=== PATIENT | female | born 1935 | race Hispanic/Latino ===

== ENCOUNTER 2018-09-03 17:25 | Inpatient (IN) | payer MEDICARE ==
[2018-09-03 17:25] VITALS: BMI 37.8
[2018-09-03 18:38] LABS: BASO # 0.02 K/mm3 (0.0-2.0); BASO % 0.4 % (0.0-3.0); EOS # 0.1 (0.0-0.7); GRAN # 3.44 (1.4-6.5); GRAN % 62.5 % (50.0-68.0); HEMOGLOBIN 13.1 g/dL (12.0-16.0); LYMPH # 1.3 (1.2-3.4); LYMPH % 24.2 % (22.0-35.0); MEAN CELL VOLUME 95.4 fl (80.0-105.0); MEAN CORPUSCULAR HEMOGLOBIN 31.6 pg (25.0-35.0); MEAN CORPUSCULAR HGB CONC 33.2 g/dl (31.0-37.0); MEAN PLATELET VOLUME 9.5 fl (7.0-11.0); MONO # 0.6 (0.1-0.6); MONO % 10.9 % (1.0-6.0); RBC 4.14 10^6/uL (3.5-6.1); RED CELL DISTRIBUTION WIDTH 12.1 % (11.5-14.5); WHITE BLOOD COUNT 5.5 10^3/uL (4.5-11.0)
--- NOTE | 2018-09-03 18:39 | ED PDOC ---
Arrival/HPI - General Chief Complaint: Shortness Of Breath Time Seen by Provider: 09/03/18 17:34 Historian: Patient - History of Present Illness Narrative History of Present Illness (Text): 09/03/18 18:34 82-year-old female presents today with worsening cough since August 10. Patient was seen by her primary care physician as well as the women's health care nurse practitioner has been given Zithromax as well as inhaled steroid-induced without improvement in his symptoms. Patient's daughter states over the past 2 days symptoms seem to be worsening. Patient denies fevers or chills. She denies chest pain. She is complaining of dyspnea on exertion. She denies abdominal pain. No nausea or vomiting. No dizziness or weakness. No other complaints. Past Medical History - Provider Review Nursing Documentation Reviewed: Yes - Travel History Have you recently traveled outside [place] w/in the past 3 mons?: No - Infectious Disease Hx of Infectious Diseases: None - Cardiac Hx Hypertension: Yes - Pulmonary Hx Asthma: Yes Other/Comment: Pneumonectomy (L Lung) - Neurological Hx Dementia: Yes - Hematological/Oncological Hx Cancer: Yes (L breast ca) - Psychiatric Hx Substance Use: No - Surgical History Other/Comment: Pneumonectomy (L Lung) - Anesthesia Hx Anesthesia: Yes Hx Anesthesia Reactions: No Hx Malignant Hyperthermia: No Family/Social History - Physician Review Nursing Documentation Reviewed: Yes Family/Social History: Unknown Family HX Smoking Status: Never Smoked Hx Alcohol Use: No Hx Substance Use: No Allergies/Home Meds Allergies/Adverse Reactions: Allergies levofloxacin [From Levaquin] Allergy (Verified 09/03/18 19:37) DIZZINESS Sulfa (Sulfonamide Antibiotics) Allergy (Verified 09/03/18 19:26) RASH Home Medications: Home Meds Medication Instructions Recorded Confirmed Simvastatin [Zocor] 1 tab PO DAILY 05/07/18 09/03/18 Arformoterol [Brovana] 1 inh NEB BID 09/03/18 09/03/18 Ascorbic Acid [Vitamin C] 1,000 mg PO DAILY 09/03/18 09/03/18 Aspirin [Aspirin Chewable] 81 mg PO DAILY 09/03/18 09/03/18 Benzonatate [Tessalon Perle] 100 mg PO TID 09/03/18 09/03/18 Bimatoprost [Lumigan] 1 drop OU HS 09/03/18 09/03/18 Budesonide [Pulmicort Respules] 1 inh NEB Q12H 09/03/18 09/03/18 Cefuroxime Axetil [Cefuroxime] 500 mg PO DAILY 09/03/18 09/03/18 Cholecalciferol (Vitamin D3) 2,000 iu PO DAILY 09/03/18 09/03/18 [Vitamin D3] Escitalopram Oxalate [Lexapro] 5 mg PO DAILY 09/03/18 09/03/18 Ginseng 560 mg PO DAILY 09/03/18 09/03/18 Guaifenesin [Mucinex] 1,200 mg PO PRN PRN 09/03/18 09/03/18 Metoprolol Succinate [Kapspargo 50 mg PO DAILY 09/03/18 09/03/18 Sprinkle] Parsley/Garlic [Garlic & Parsley 1 tab PO DAILY 09/03/18 09/03/18 Tablet] Pseudoephedrine HCl [Sudafed] 30 mg PO DAILY PRN 09/03/18 09/03/18 Turmeric 400 mg PO DAILY 09/03/18 09/03/18 Vitamin E Acetate [Vitamin E] 1 tab PO DAILY 09/03/18 09/03/18 Zinc Gluconate-Zinc Picolinate 30 mg PO DAILY 09/03/18 09/03/18 [Zinc] l-Mefol/A-Cyst/Meb12/Algal Oil 1 tab PO DAILY 09/03/18 09/03/18 [Cerefolin Nac Caplet] Review of Systems - Review of Systems Constitutional: absent: Fatigue, Fevers ENT: Sinus Congestion. absent: Sore Throat Respiratory: SOB, Cough Cardiovascular: absent: Chest Pain, Palpitations Gastrointestinal: absent: Abdominal Pain, Nausea, Vomiting Genitourinary Female: absent: Dysuria Musculoskeletal: absent: Arthralgias Skin: absent: Rash, Pruritis Neurological: absent: Headache, Dizziness Psychiatric: absent: Anxiety, Depression Physical Exam Vital Signs Reviewed: Yes Vital Signs Temp Pulse Resp BP Pulse Ox 09/03/18 17:41 98.2 F 79 18 104/60 96 Temperature: Afebrile Blood Pressure: Normal Pulse: Regular Respiratory Rate: Normal Appearance: Positive for: Well-Appearing, Non-Toxic, Comfortable Pain Distress: None Mental Status: Positive for: Alert and Oriented X 3 - Systems Exam Head: Present: Atraumatic Mouth: Present: Moist Mucous Membranes Neck: Present: Normal Range of Motion Respiratory/Chest: Present: Good Air Exchange, Wheezes, Rhonchi. No: Clear to Auscultation, Respiratory Distress, Accessory Muscle Use Cardiovascular: Present: Regular Rate and Rhythm, Normal S1, S2. No: Murmurs Abdomen: No: Tenderness, Distention, Rebound, Guarding Upper Extremity: Present: Normal Inspection Lower Extremity: Present: Edema (2+ pitting edema bilaterally .) Neurological: Present: GCS=15, Speech Normal Skin: Present: Warm, Dry, Normal Color. No: Rashes Psychiatric: Present: Alert, Oriented x 3 Medical Decision Making ED Course and Treatment: 09/03/18 18:40 82yr old female with cough and SOB worsening since 08/10/18 despite multiple medications and antibiotics. cbc wnl cmp wnl trop wnl bnp: 498 ekg; accelerated jucntional rhythm with pvcs. no st elevations. at 79b/m cxr; no right sided infiltrate, s/p left lung resection ua: + leukocytes patient with hypoxia, worsening cough since 08/10/18 despite antibiotics and breathing treatments. Found to be significantly short of breath on exertion in the emergency room. With history of right lung resection 40 years ago. Case discussed with Dr. Joya accepts admission to telemetry with cardiology and pulmonology consult Will start patient on Zosyn for possible pneumonia all aspects of this case were discussed the attending of record. Impression: Shortness of breath, hypoxia, dyspnea on exertion, elevated BNP, failure of outpatient treatment Admit to remote telemetry Reassessment Condition: Re-examined, Improved - RAD Interpretation Radiology Orders: 09/03/18 18:01 CHEST PORTABLE [RAD] Stat Disposition/Present on Arrival - Present on Arrival Any Indicators Present on Arrival: No History of DVT/PE: No History of Uncontrolled Diabetes: No Urinary Catheter: No History of Decub. Ulcer: No History Surgical Site Infection Following: None - Disposition Have Diagnosis and Disposition been Completed?: Yes Diagnosis: Shortness of breath, Hypoxia, Failure of outpatient treatment Disposition: HOSPITALIZED Disposition Time: 19:45 Patient Plan: Admission Patient Problems: Current Active Problems Problem Status Onset Failure of outpatient treatment Acute Hypoxia Acute Shortness of breath Acute Condition: FAIR
[2018-09-03] MEDS ORDERED: Albuterol-Ipratrop 3 mg / 0.5 (3 ml) UD IH STA ×2 (18:40→20:41)
[2018-09-03 18:51] LABS: ALB/GLOB RATIO 1.5 (1.1-1.8); ALBUMIN 4.2 g/dL (3.0-4.8); ALT/SGPT 18 U/L (7-56); AST/SGOT 24 U/L (14-36); BLOOD UREA NITROGEN 9 mg/dL (7-21); CALCIUM 9.3 mg/dL (8.4-10.5); GFR NON-AFRICAN AMERICAN > 60
[2018-09-03 18:59] LABS: B-TYPE NATRIURETIC PEPTIDE 498 pg/mL (0-450); TROPONIN I < 0.01 ng/mL
[2018-09-03 19:16] LABS: PH,URINE 6.5 (4.7-8.0); URINE APPEARANCE CLEAR (CLEAR); URINE BILIRUBIN NEGATIVE (NEGATIVE); URINE BLOOD NEGATIVE (NEGATIVE); URINE COLOR LIGHT YELLOW (YELLOW); URINE GLUCOSE (UA) NEGATIVE (NEGATIVE); URINE LEUKOCYTE ESTERASE LARGE Leu/uL (NEGATIVE); URINE PROTEIN NEGATIVE mg/dL (<30 mg/dL); URINE UROBILINOGEN 0.2 E.U./dL (<1 E.U./dL)
[2018-09-03 19:21] LABS: URINE RBC NEGATIVE /hpf (0-2)
[2018-09-03] MEDS ORDERED: Piperacillin/Tazobact 3.375 gm 100 ML IVPB STA (19:37)
[2018-09-03] MEDS ORDERED: Albuterol-Ipratrop 3 mg / 0.5 (3 ml) UD IH PRN (21:26)
[2018-09-03] MEDS: MethylPREDNISolone 40 mg Vial IV SCH (23:46)
--- NOTE | 2018-09-04 01:12 | HP ---
DATE OF EXAM: 09/03/2018 HISTORY OF PRESENT ILLNESS: The patient is an 82-year-old, brought in by family because of increasing cough and congestion. According to family, that is going on for the last couple of weeks. She was taken to who prescribed her Z-vcítor, but did not improve. So, she visited Dr. Mullen, who gave some inhaler, which made her feel a little better, but she has been coughing and has chest congestion since then. The patient's symptoms got worse for the last 2 days. Family then decided to bring her to emergency room. She did have low-grade fever a couple of weeks ago, but lately denies any fever or chills, however, having shortness of breath. No history of hemoptysis. No hematemesis. No nausea or vomiting. PAST MEDICAL HISTORY: Significant for: 1. Throat cancer. 2. She has a pneumonectomy done. 3. Hypertension. 4. Also, history of breast cancer. ALLERGIES: SHE IS ALLERGIC TO LEVAQUIN AND SULFA MEDICATIONS. MEDICATIONS AT HOME: She is on multiple supplements including vitamin E, vitamin D, , turmeric, ginseng, garlic, zinc, gluconate, aspirin, Sudafed, Mucinex. She takes Lumigan eye drops. She is on Lexapro 5 mg daily, Brovana, Pulmicort, and recently was given Zithromax, and she is also on metoprolol and Zocor. SOCIAL HISTORY: No history of smoking or drinking. PHYSICAL EXAMINATION: GENERAL: She has mild shortness of breath. VITAL SIGNS: She is afebrile, pulse 79, respirations 18, blood pressure 104/60. LUNGS: She has expiratory rhonchi, decreased breath sounds in the left chest. HEART: S1 and S2 audible. ABDOMEN: Soft, nontender. No rebound. No guarding. NEUROLOGICAL: The patient is awake and alert. EXTREMITIES: Bilateral legs, no edema. LABORATORY EXAM: WBC is 5.5, hemoglobin 13, hematocrit 39, platelets 143. Chemistry: Sodium 136, potassium 4.5, chloride 99, CO2 of 32, BUN 9, creatinine 0.6, blood sugar 95. LFTs are within normal limits. BNP 498. Urinalysis shows large leukocytes. Flu test is negative. ASSESSMENT: 1. Exertional dyspnea. 2. Status post pneumonectomy. 3. Asthmatic bronchitis. 4. History of hypertension. 5. Hyperlipidemia. PLAN: We will start the patient on nebulizer treatment. We will start her on IV steroid, IV antibiotic. I will order for CT scan of the lungs. Pulmonary consult by Dr. Escalera and Cardiology consult by Dr. Ma are requested. Vishal Joya MD
[2018-09-04] MEDS: Albuterol-Ipratrop 3 mg / 0.5 (3 ml) UD IH SCH ×4 (02:35→21:15)
[2018-09-04] MEDS: MethylPREDNISolone 40 mg Vial IV SCH (06:19)
[2018-09-04] MEDS: Pantoprazole 40 mg EC Tab PO SCH (06:20)
[2018-09-04] MEDS: Budesonide 0.5 mg/2 ml Inhal Susp UD IH SCH ×2 (08:03→21:15)
[2018-09-04] MEDS: Azithromycin 500MG/NS 250ml 500 MG/250 ML BAG IVPB SCH (09:29)
[2018-09-04] MEDS: MethylPREDNISolone 40 mg Vial IVP SCH ×2 (09:30→21:37)
[2018-09-04] MEDS: cefTRIAXone 1 gm 1 GM/100 ML BAG IVPB SCH (09:30)
[2018-09-04] MEDS: Enoxaparin 30 mg Syringe SC SCH (09:30)
--- NOTE | 2018-09-04 09:40 | CARD ---
APPROVED REPORT Date of service: 09/03/2018 EKG Measurement Heart [id number] <Conclusion> Normal sinus rhythm with frequent premature ventricular complexes and APCs Abnormal ECG
--- NOTE | 2018-09-04 10:08 | RAD ---
Date of service: 09/03/2018 HISTORY: cough/sob COMPARISON: 05/07/2018 FINDINGS: LUNGS: The right lung is clear. PLEURA: There is complete opacification of the left hemithorax. Calcified pleural plaques are seen. CARDIOVASCULAR: Aortic calcification Cardiomegaly no pulmonary vascular congestion. OSSEOUS STRUCTURES: No significant abnormalities. VISUALIZED UPPER ABDOMEN: Normal. OTHER FINDINGS: None. IMPRESSION: There is complete opacification of the left hemithorax. Calcified pleural plaques are seen.
--- NOTE | 2018-09-04 11:28 | CON ---
DATE: 09/04/2018 REQUESTING PHYSICIAN: Dr. Joya. REASON FOR CONSULTATION: Cough, dyspnea. HISTORY: This is an 82-year-old woman with advanced dementia and prior left lobectomy, who was brought to emergency room by her daughter for worsening cough for now and dyspnea. According to her daughter, she had no complaints of chest discomfort. She has been treated with outpatient bronchodilator therapy and antibiotics with suboptimal result. She is seen in the presence of her daughter. She apparently was quite restless last evening and received some anxiolytic therapy and is fairly somnolent. The rest of the history is obtained via the daughter. She apparently underwent left lobectomy 35 years ago, the exact reason was unclear. She does have a history of hypertension, prior breast cancer. She also has a history of hyperlipidemia. MEDICATIONS: Medication at home include Zocor, Brovana, aspirin, Pulmicort, cefuroxime, Lexapro and Mucinex. ALLERGIES: SHE HAS HAD REACTIONS TO SULFAS AND LEVAQUIN IN THE PAST. SOCIAL HISTORY: She never smoked. She lives with her daughter. FAMILY HISTORY: Both parents were from unknown cause. REVIEW OF SYSTEMS: Ten-point review of systems is notable mainly for the problems mentioned above. PHYSICAL EXAMINATION: GENERAL: She is a very elderly woman, who appears somnolent. At the present time, she appears to be in no distress. VITAL SIGNS: Her blood pressure is 140/76 with pulse 56 and sinus, respirations are 16. She is afebrile. HEENT: No JVD. CHEST: Diminished breath sounds on the left side, few rhonchi heard on the right. HEART: No pathological murmurs or gallops are heard. ABDOMEN: Soft. Bowel sounds are present. EXTREMITIES: No edema. SKIN: Warm and dry. PSYCHIATRIC: Sedated, unable to assess. NEUROLOGIC: Also unable to assess. DIAGNOSTIC DATA: Troponin is negative. Potassium 4.5. BUN and creatinine are 9 and 0.6. White count 5.5, hemoglobin and hematocrit are 13.1 and 39.3 with a platelet count of 143,000. Troponin is negative. BNP is 498. Electrocardiogram was not found on the chart. According to emergency room record, it showed evidence of an accelerated junctional rhythm with PVCs, no acute ST-T abnormalities. Chest x-ray reveals right lung opacification with no significant disease on the right side. IMPRESSION: 1. Dyspnea and cough, likely due to bronchitis, doubt cardiac cause. 2. Accelerated junctional rhythm, asymptomatic. No need for treatment at this time. 3. Advanced dementia. 4. Status post pneumonectomy. 5. Rest of problems as noted. RECOMMENDATIONS: From a cardiac standpoint, I would not pursue any further evaluation. Her elevated BNP is likely chronic and secondary to her pulmonary condition. Diuretic therapy is not needed at this time. From a cardiac standpoint, no further workup is planned, and she is stable for discharge once medically cleared. We will be happy to see her in the future if needed. Thank you for this consultation. Carmelo Ma MD MTDAnupam
[2018-09-04] MEDS: Metoprolol Succinate 50 mg XL Tab PO SCH (11:56)
--- NOTE | 2018-09-04 14:29 | CON ---
PULMONARY CONSULTATION DATE OF CONSULTATION: 09/04/2018 REFERRING PHYSICIAN: Vishal Joya MD REASON FOR CONSULTATION: Chronic obstructive pulmonary disease. History is obtained via extensive discussion with the daughter. I have also reviewed the chart at length. The patient is not an adequate historian at this point in time. HISTORY OF PRESENT ILLNESS: The patient is an 82-year-old female, with past medical history significant for chronic obstructive pulmonary disease, status post left pneumonectomy 30 years ago (reason unknown), hypertension, dementia, who presents to [facility] with a 2-week history of increasing shortness of breath at rest, dyspnea on exertion, and cough. There is no history of significant sputum production. There is no history of chest pain, coughing up of blood, or chest pain - brought on with deep respirations. There is no history of temperatures, chills, or infectious exposure. There is no history of night sweats, weight loss, or appetite change prior to the above events. No history of leg or calf pains. No history of syncope or diaphoresis. No history of recent travel or trauma. FAMILY HISTORY: No inheritable diseases. SOCIAL HISTORY: Positive for former tobacco usage. No alcohol. HOME MEDICATIONS: Vitamins, aspirin, Sudafed, Mucinex, Lexapro, Brovana, Pulmicort, Tessalon, cefuroxime, and Zocor. ALLERGIES: LEVAQUIN AND SULFONAMIDES. REVIEW OF SYSTEMS: No history of nausea, vomiting, or diarrhea. No acute urinary symptoms. No new neurologic complaints. Rest of the review of systems negative. PHYSICAL EXAMINATION: GENERAL: The patient appears comfortable at rest. She is not short of breath. She is not using accessory muscles for breathing. VITALS: Temperature is 98.2, pulse 56, respirations 18, blood pressure 139/77. Oxygen saturation on nasal cannula is 97%. HEENT: Normocephalic and atraumatic. NECK: No JVD. CARDIOVASCULAR: Systolic ejection murmur at the lower left sternal border. No S3 gallop. LUNGS: Mild rhonchi - right lung. No wheezing. Left lung - bronchial breath sounds. EXTREMITIES: No clubbing, cyanosis, or edema. Calves are nontender to palpation. GI: Abdomen is soft, nontender, and nondistended. Bowel sounds are positive. SKIN: No acute rash. NEUROLOGIC: Exam limited at the present time. PERTINENT LABORATORY DATA: Chest x-ray was done last night and reviewed. Official results are pending. The x-ray done last night is very similar to the x-ray done on 05/07/2018. CBC: White count 5.5K, hemoglobin 13.1, hematocrit 39.5, platelets of 143,000. Complete Metabolic Profile: B-type natriuretic peptide 498. Rest of the metabolic profile is within normal limits. IMPRESSION: 1. Acute bronchitis. 2. Chronic obstructive pulmonary disease. 3. Status post left pneumonectomy - 30 years ago. 4. Hypertension. PLAN: Again, I did discuss the case with the daughter at length. I have also reviewed the chart at length. The patient presents to [facility] with a 2-week history of worsening pulmonary symptoms. Again, the patient is status post left pneumonectomy many years ago. The daughter does not know the reason. I did review the chest x-ray as above. The chest x-ray shows no significant change from the previous film. CAT scan of the chest has been ordered for further evaluation. On physical exam, there is mild bronchospasm noted. However, there is no significant alveolar-arterial gradient. I will continue with the current nebulizer treatments and decrease the intravenous steroids this morning. I will also add inhaled Pulmicort. The patient has been placed on antibiotic therapy. Again, a CAT scan of the chest is pending. There are no temperatures by history. There is no leukocytosis. Clinical status of the patient certainly appears improved - compared to the past few days. The daughter agrees that the patient is showing clinical improvement. The daughter is asking to take her mother home today. I told her that I did not think that was feasible at this point in time. I will discuss the above with the attending physician. Thank you very much for this pulmonary consultation. Ruben Escalera MD [facility]
--- NOTE | 2018-09-04 15:24 | CT ---
Date of service: 09/04/2018 PROCEDURE: CT Chest without contrast HISTORY: sob COMPARISON: Portable chest 05/07/2018 TECHNIQUE: Contiguous axial images were obtained through the chest without intravenous contrast enhancement. Sagittal and coronal reconstructions were performed. Radiation dose: Total exam DLP = 702.0 mGy-cm. This CT exam was performed using one or more of the following dose reduction techniques: Automated exposure control, adjustment of the mA and/or kV according to patient size, and/or use of iterative reconstruction technique. FINDINGS: LUNGS: Status post pneumonectomy in the left lung with pleural calcification and pleural fluid. Volume loss. There is a small subsegmental infiltrate in the right lower lobe MEDIASTINUM: Unremarkable thoracic aorta. No aneurysm. Normal sized heart. Main pulmonary artery unremarkable. No vascular congestion. No lymphadenopathy. Aortic calcification PLEURA: No pleural fluid. No pneumothorax. BONES: No fracture. No destructive lesion. UPPER ABDOMEN: Grossly unremarkable. OTHER FINDINGS: None. IMPRESSION: Status post pneumonectomy in the left lung with pleural calcification and pleural fluid. Volume loss. There is a small subsegmental infiltrate in the right lower lobe
[2018-09-04 17:59] VITALS: O2SAT 98
[2018-09-05] MEDS: Albuterol-Ipratrop 3 mg / 0.5 (3 ml) UD IH SCH ×2 (03:12→07:35)
[2018-09-05] MEDS: Pantoprazole 40 mg EC Tab PO SCH (05:41)
[2018-09-05] MEDS: Budesonide 0.5 mg/2 ml Inhal Susp UD IH SCH (07:35)
[2018-09-05 08:30] VITALS: BP 136/55; PULSE 60; RESP 18; TEMP 97.7
[2018-09-05] MEDS: Enoxaparin 30 mg Syringe SC SCH (09:22)
[2018-09-05] MEDS: cefTRIAXone 1 gm 1 GM/100 ML BAG IVPB SCH (09:22)
[2018-09-05] MEDS: Metoprolol Succinate 50 mg XL Tab PO SCH (09:23)
[2018-09-05] MEDS: Azithromycin 500MG/NS 250ml 500 MG/250 ML BAG IVPB SCH (09:24)
--- NOTE | 2018-09-05 09:24 | PN ---
DATE: 09/04/2018 HISTORY OF PRESENT ILLNESS: The patient is 82 years old, seen and examined, resting comfortably. No shortness of breath. Daughter mom home, she thinks she is feeling better. The patient had failed outpatient treatment for bronchitis. She was recently given Brovana by Dr. Mullen. The patient's daughter thinks she was increasingly short of breath because of that. She seems to be doing better now. PHYSICAL EXAMINATION: GENERAL: She is comfortable, resting. VITAL SIGNS: She is afebrile, pulse 70, respirations 18 and blood pressure 126/67. LUNGS: Decreased breath sounds on the left side; however, she has fair airflow on the right upper and low lung region. HEART: S1 and S2, audible. ABDOMEN: Soft and nontender. No rebound. No guarding. NEUROLOGIC: The patient is awake, alert, oriented and communicative. LABORATORY EXAM: There is no new lab available today. Flu test is negative. CT scan of the chest is pending. ASSESSMENT: 1. Exertional dyspnea. 2. History of left pneumonectomy 40 years ago. 3. Right breast malignancy. 4. Mild dementia. 5. Deconditioning and difficulty walking. 6. History of hypertension. PLAN: Currently, the patient is on DVT prophylaxis. We will give her nebulizer treatment. She is on IV antibiotics, awaiting CT scan of the chest report, and if there is no pneumonia noted, the patient will be discharged later on today. Since the patient's family want to take her home, they do not want her to get any infection. Vishal Joya MD [facility]
--- NOTE | 2018-09-05 09:57 | PN ---
DATE: 09/05/2018 PULMONARY NOTE SUBJECTIVE: The patient appears very comfortable this morning. She is not short of breath at rest. She is awake and alert. PHYSICAL EXAMINATION: VITAL SIGNS: (Last noted in the computer): Temperature is 98.0, pulse 87, respirations 18/20, blood pressure 134/70 and oxygen saturation on nasal cannula is 98%. HEENT: Normocephalic and atraumatic. No JVD. CARDIOVASCULAR: Systolic ejection murmur at the lower left sternal border. No S3 gallop. LUNGS: Much less rhonchi - right lung. No wheezing. Left lung - bronchial breath sounds. EXTREMITIES: No clubbing, cyanosis or edema. Calves are nontender to palpation. GI: Abdomen is soft, nontender and nondistended. Bowel sounds are positive. SKIN: No acute rash. NEUROLOGIC: Limited at the present time. PERTINENT LABORATORY DATA: CAT scan of the chest was done and reviewed. There is a minimal infiltrate versus atelectasis noted at the right lung base. There is no lymphadenopathy. IMPRESSION: 1. Acute bronchitis. 2. Chronic obstructive pulmonary disease. 3. Status post left pneumonectomy - 30 years ago. 4. Rule out pneumonia - right base. PLAN: The patient appears much more comfortable this morning. She is out of bed, sitting in the chair. She is awake and alert. She does state to feeling much better overall. I did discuss the case with the daughter (at bedside) at length. The daughter confirms the patient's clinical improvement. I did review the CAT scan of the chest - noted above. There is a minimal infiltrate versus atelectasis noted at the right lung base. I will order a stat procalcitonin level to be done - to help us distinguish whether we are dealing with an acute pneumonia or not. Keep in mind, there is no history of fevers. There is no leukocytosis. The patient remains on antibiotic therapy. Cultures are negative. On physical exam, the patient's bronchospasm is significantly less. In addition, the alveolar-arterial gradient is also less. I will continue the current nebulizer treatments and decrease the intravenous steroids this morning. Clinical status of the patient is significantly improved - compared to the initial presentation. I will discuss the above with the attending physician. Ruben Escalera MD [facility] # [id number] [facility]
[2018-09-05] MEDS ORDERED: MethylPREDNISolone 40 mg Vial IVP SCH (10:00)
--- NOTE | 2018-09-05 14:35 | DS ---
HISTORY OF PRESENT ILLNESS: This is an 82-year-old female who had come into the hospital because of a shortness of breath. The patient has been treated for bronchitis with Vantin and Zithromax. CT of the chest done shows the patient has a pneumonectomy and left lung with pleural calcification and pleural fluid volume loss and small segmental infiltrate in the right lower lobe. The patient currently feels well, has no complaints of any chest pain, no shortness of breath. No headaches or dizziness. PHYSICAL EXAMINATION: VITAL SIGNS: Temperature is 97.7, pulse of 60, blood pressure of 136/55, respirations 18 and O2 saturation 98%. GENERAL: The patient is lying in bed, flat, comfortable. HEENT: No oral lesion. Anicteric sclerae. Moist mucosa. NECK: No JVD, adenopathy, or thyromegaly. CARDIOVASCULAR: S1 and S2, regular. No murmurs, rubs, or gallops. LUNGS: Clear to auscultation bilaterally. No wheeze, rales, or rhonchi. ABDOMEN: Bowel sounds are positive, soft, nontender and nondistended. EXTREMITIES: No cyanosis, clubbing or edema. LABORATORY DATA: Blood cultures have been negative. The patient's influenza has been negative. ASSESSMENT: 1. Bronchitis. 2. LEVAQUIN ALLERGY. 3. History of left pneumonectomy x40 years. 4. Right breast carcinoma. 5. Dementia Alzheimer's type. 6. Deconditioning. 7. Hypertension. PLAN: The patient is currently on Lexapro for anxiety and he is on Lipitor for dyslipidemia. The patient is receiving Rocephin for antibiotics. Patient was getting Solu-Medrol for the breathing. The patient is on Zofran as needed. She is on a heart healthy diet. At this point, the patient will be discharged home to followup as an outpatient. She does not require any further antibiotics, as she has had multiple antibiotics over the last approximately 2 weeks and she has improved with her steroids. She is going to continue with nebulizer treatment and followup with Dr. Mullen who is her primary jig and fixture maker. Chris Ham MD [facility] # [id number]
== END 2018-09-05 13:05 | disposition home or self-care (01) | DRG 202 ==
LOC: ED 17:25 → ERH 20:35 → 3RNO 22:49
PROVIDERS: ADMIT Internal Medicine Nephrology; ATTEND Internal Medicine Nephrology
DX: J20.9 Acute bronchitis, unspecified (principal); J44.0 Chronic obstructive pulmonary disease with (acute) lower respiratory infection; R09.02 Hypoxemia; C50.911 Malignant neoplasm of unspecified site of right female breast; G30.9 Alzheimer's disease, unspecified; F02.80 Dementia in other diseases classified elsewhere, unspecified severity, without behavioral disturbance, psychotic disturbance, mood disturbance, and anxiety; E78.5 Hyperlipidemia, unspecified; I10 Essential (primary) hypertension; F41.9 Anxiety disorder, unspecified; R26.2 Difficulty in walking, not elsewhere classified; Z90.2 Acquired absence of lung [part of]; Z88.1 Allergy status to other antibiotic agents

== ENCOUNTER 2018-09-12 07:48 | Inpatient (IN) | payer MEDICARE ==
[2018-09-12 07:48] VITALS: BMI 37.8
--- NOTE | 2018-09-12 08:42 | ED PDOC ---
Arrival/HPI - General Chief Complaint: Cough, Cold, Congestion Time Seen by Provider: 09/12/18 07:53 Historian: Patient, Family (daughter) - History of Present Illness Narrative History of Present Illness (Text): 09/12/18 08:38 A 82 year old female, whose past medical history includes hypertension, asthma, left breast cancer, pneumonectomy (left lung), and dementia, who is accompanied by daughter, presents to the emergency department complaining of cough all night. Per daughter, patient was recently discharged from the hospital for similar complaint. States nearly every year during July, patient would have bronchitis, however notes this time symptom are not resolved. Notes while admitted for 2 nights, patient was given steroid injections, antibiotics, Zosyn, Duoneb, and Rocephin (for a small urinary infection). Upon discharge, instructions were to continue patient on nebulizer treatments at home and prescribed by shearer helper Dr. Pedroza antibiotics (Azithromycin 500 mg), cough medication. However within 24 hrs post-discharge, she began experiencing consistent coughing with clear mucous, same as before. Also daughter mentions patient had Chest X-ray performed and it was normal, however when Chest CT was conducted, results showed a small right lower lobe infiltrate. Patient currently also has bilateral leg swelling, which may be result of possible COPD, as per daughter. Patient is able to ambulate on her own. Patient denies any other complaints at this time. Also, it is mentioned during admission, she was seen by flight crew time clerk consult Dr. August. PMD: Dr. Michael Maintenance Helper Utility Engineer: Dr. Pedroza Past Medical History - Provider Review Nursing Documentation Reviewed: Yes - Infectious Disease Hx of Infectious Diseases: None - Cardiac Hx Cardiac Disorders: Yes Hx Hypertension: Yes - Pulmonary Hx Respiratory Disorders: Yes Hx Asthma: Yes Other/Comment: Pneumonectomy (L Lung) - Neurological Hx Neurological Disorder: Yes Hx Dementia: Yes - HEENT Hx HEENT Disorder: No - Renal Hx Renal Disorder: No - Endocrine/Metabolic Hx Endocrine Disorders: No - Hematological/Oncological Hx Blood Disorders: Yes Hx Cancer: Yes (L breast ca) - Integumentary Hx Dermatological Disorder: No - Musculoskeletal/Rheumatological Hx Musculoskeletal Disorders: No Hx Falls: No - Gastrointestinal Hx Gastrointestinal Disorders: No - Genitourinary/Gynecological Hx Genitourinary Disorders: Yes Hx Urinary Tract Infection: Yes - Psychiatric Hx Psychophysiologic Disorder: No Hx Substance Use: No - Surgical History Other/Comment: Pneumonectomy (L Lung) - Anesthesia Hx Anesthesia: Yes Hx Anesthesia Reactions: No Hx Malignant Hyperthermia: No Family/Social History - Physician Review Nursing Documentation Reviewed: Yes Family/Social History: No Known Family HX Smoking Status: Former Smoker Hx Alcohol Use: No Hx Substance Use: No Allergies/Home Meds Allergies/Adverse Reactions: Allergies levofloxacin [From Levaquin] Allergy (Verified 09/12/18 08:06) DIZZINESS Sulfa (Sulfonamide Antibiotics) Allergy (Verified 09/12/18 08:06) RASH Home Medications: Home Meds Medication Instructions Recorded Confirmed Simvastatin [Zocor] 1 tab PO DAILY 05/07/18 09/12/18 Arformoterol [Brovana] 1 inh NEB BID 09/03/18 09/12/18 Ascorbic Acid [Vitamin C] 1,000 mg PO DAILY 09/03/18 09/12/18 Aspirin [Aspirin Chewable] 81 mg PO DAILY 09/03/18 09/12/18 Benzonatate [Tessalon Perle] 100 mg PO TID 09/03/18 09/12/18 Bimatoprost [Lumigan] 1 drop OU HS 09/03/18 09/12/18 Budesonide [Pulmicort Respules] 1 inh NEB Q12H 09/03/18 09/12/18 Cefuroxime Axetil [Cefuroxime] 500 mg PO DAILY 09/03/18 09/12/18 Cholecalciferol (Vitamin D3) 2,000 iu PO DAILY 09/03/18 09/12/18 [Vitamin D3] Escitalopram Oxalate [Lexapro] 5 mg PO DAILY 09/03/18 09/12/18 Ginseng 560 mg PO DAILY 09/03/18 09/12/18 Guaifenesin [Mucinex] 1,200 mg PO PRN PRN 09/03/18 09/12/18 Metoprolol Succinate [Kapspargo 50 mg PO DAILY 09/03/18 09/12/18 Sprinkle] Parsley/Garlic [Garlic & Parsley 1 tab PO DAILY 09/03/18 09/12/18 Tablet] Pseudoephedrine HCl [Sudafed] 30 mg PO DAILY PRN 09/03/18 09/12/18 Turmeric 400 mg PO DAILY 09/03/18 09/12/18 Vitamin E Acetate [Vitamin E] 1 tab PO DAILY 09/03/18 09/12/18 Zinc Gluconate-Zinc Picolinate 30 mg PO DAILY 09/03/18 09/12/18 [Zinc] l-Mefol/A-Cyst/Meb12/Algal Oil 1 tab PO DAILY 09/03/18 09/12/18 [Cerefolin Nac Caplet] Review of Systems - Physician Review All systems were reviewed & negative as marked: Yes - Review of Systems Constitutional: absent: Fevers Respiratory: Cough (clear mucous) Musculoskeletal: Other (bilateral leg swelling) Physical Exam - Physical Exam Narrative Physical Exam (Text): Gen: VS reviewed, alert, well developed, well nourished, nontoxic, mild distress. ENT: normal pharynx. Eye: EOMI, PERRL. Neck: no JVD, supple, no adenopathy. CV: regular rate, regular rhythm, no rubs, no murmur, no gallops, S1, S2, pulses equal and strong. Pulm: no distress, clear to auscultation, slight wheezing and coarse rhonchi to the right lung field, absent breath sounds to left field, good air exchange to right, no rales. Abd: soft, nontender, no guarding, no rebound, no rigidity, normal bowel sounds. Ext: pitting edema bilateral lower extremities. Skin: good color, no rash, no cyanosis. Psych: responds appropriately to questions, normal affect. Neuro: oriented x 3, CN2-12 intact grossly, motor intact, sensation intact. Vital Signs Reviewed: Yes Vital Signs Temp Pulse Resp BP Pulse Ox 09/12/18 08:03 97.8 F 80 18 185/90 H 95 Temperature: Afebrile Blood Pressure: Hypertensive Pulse: Regular Respiratory Rate: Normal Appearance: Positive for: Well-Appearing, Non-Toxic, Comfortable Pain Distress: None Mental Status: Positive for: Alert and Oriented X 3 Medical Decision Making ED Course and Treatment: 09/12/18 08:43 Impression: 82 year old female with cough with clear mucous. Plan: -- EKG -- Venous Blood Gas -- Chest X-ray -- Labs -- Duoneb -- SOLU-Medrol -- Reassess and disposition Prior Visits: Notes and results from previous visits were reviewed. Patient was last seen here in the emergency department on 09/03/2018 for worsening cough since 08/10/18. Patient was admitted. Progress Notes: 09/12/18 08:08 EKG: Ordered, reviewed, and independently interpreted the EKG. Rate : 63 BPM Rhythm : NSR Interpretation : Normal QRS, normal access, no acute ST- and T-wave changes. Comparison : No previous EKG for comparison. 09/12/18 12:00 patient re-eval. patient states that she feels "great" after neb tx and steroid. on lung exam, there is noted improvement in coarse breath sounds with good air exchanged in the right lung field. 09/12/18 13:[address] avalos, observation status, patient to be admitted for copd exacerbation. - Lab Interpretations I have reviewed the lab results: Yes - RAD Interpretation Narrative RAD Interpretations (Text): 09/12/2018 10:46 Chest X-ray IMPRESSION: Status post left-sided pneumonectomy with pleural calcifications and volume loss. The right lung clear. Dictator: Jorge Conde MD - Scribe Statement The provider has reviewed the documentation as recorded by the Scribthelma Shi Provider Scribe Attestation: All medical record entries made by the Scribe were at my direction and personally dictated by me. I have reviewed the chart and agree that the record accurately reflects my personal performance of the history, physical exam, medical decision making, and the department course for this patient. I have also personally directed, reviewed, and agree with the discharge instructions and disposition. Disposition/Present on Arrival - Present on Arrival Any Indicators Present on Arrival: No History of DVT/PE: No History of Uncontrolled Diabetes: No Urinary Catheter: No History of Decub. Ulcer: No History Surgical Site Infection Following: None - Disposition Have Diagnosis and Disposition been Completed?: Yes Diagnosis: COPD exacerbation Disposition: HOSPITALIZED Disposition Time: 13:14 Patient Plan: Observation Condition: STABLE Forms: [employer])
[2018-09-12] MEDS: Albuterol-Ipratrop 3 mg / 0.5 (3 ml) UD IH SCH ×4 (09:06→21:12)
[2018-09-12 09:11] LABS: VENOUS BLOOD GAS BASE EXCESS 6.1 mmol/L (0.0-2.0); VENOUS BLOOD GAS PO2 115 mm/Hg (30-55); VENOUS BLOOD PH 7.42 (7.32-7.43)
[2018-09-12 09:18] LABS: BASO # 0.01 K/mm3 (0.0-2.0); BASO % 0.1 % (0.0-3.0); GRAN # 7.59 (1.4-6.5); GRAN % 76.2 % (50.0-68.0); HEMOGLOBIN 12.9 g/dL (12.0-16.0); LYMPH # 1.3 (1.2-3.4); LYMPH % 13.1 % (22.0-35.0); MEAN CELL VOLUME 95.1 fl (80.0-105.0); MEAN CORPUSCULAR HEMOGLOBIN 31.3 pg (25.0-35.0); MEAN CORPUSCULAR HGB CONC 32.9 g/dl (31.0-37.0); MEAN PLATELET VOLUME 10.5 fl (7.0-11.0); MONO # 1.1 (0.1-0.6); MONO % 10.6 % (1.0-6.0); RBC 4.12 10^6/uL (3.5-6.1); RED CELL DISTRIBUTION WIDTH 12.2 % (11.5-14.5)
[2018-09-12 09:25] LABS: ALB/GLOB RATIO 1.5 (1.1-1.8); ALBUMIN 3.8 g/dL (3.0-4.8); ALT/SGPT 36 U/L (7-56); AST/SGOT 24 U/L (14-36); BLOOD UREA NITROGEN 17 mg/dL (7-21); CALCIUM 8.8 mg/dL (8.4-10.5); GFR NON-AFRICAN AMERICAN > 60
[2018-09-12 09:29] LABS: B-TYPE NATRIURETIC PEPTIDE 1830 pg/mL (0-450)
--- NOTE | 2018-09-12 10:50 | RAD ---
Date of service: 09/12/2018 HISTORY: cough, pneumonia COMPARISON: 09/03/2018 TECHNIQUE: Chest PA and lateral FINDINGS: LUNGS: Status post left-sided pneumonectomy with pleural calcifications and volume loss. The right lung is clear PLEURA: No significant pleural effusion identified. No pneumothorax apparent. CARDIOVASCULAR: Aortic calcification Moderate cardiomegaly no pulmonary vascular congestion. OSSEOUS STRUCTURES: No significant abnormalities. VISUALIZED UPPER ABDOMEN: Normal. OTHER FINDINGS: None. IMPRESSION: Status post left-sided pneumonectomy with pleural calcifications and volume loss. The right lung is clear
[2018-09-12] MEDS ORDERED: Azithromycin 500 MG in Sodium Chloride 0.9% 250 ML IVPB STA (13:12)
[2018-09-12] MEDS ORDERED: cefTRIAXone 1 gm 1 GM/100 ML BAG IVPB STA (13:12)
[2018-09-12] MEDS ORDERED: Azithromycin 500MG/NS 250ml 500 MG/250 ML BAG IVPB STA (13:16)
[2018-09-12] MEDS ORDERED: Arformoterol 15 mcg/2 ml Inh Sol IH SCH (18:30)
[2018-09-12] MEDS: Arformoterol 15 mcg/2 ml Inh Sol IH SCH (21:11)
[2018-09-12] MEDS: Budesonide 0.25 mg/2 ml Inhal Susp UD INH SCH (21:12)
[2018-09-12] MEDS: Latanoprost 2.5 ml Opht Soln OU SCH (21:43)
[2018-09-12] MEDS ORDERED: Non Formulary Medication (Bimatoprost [Lumigan] 1 DROP) OU SCH (22:00)
[2018-09-13] MEDS: Benzocaine/Menthol (Cepacol) Lozenge MT PRN (04:53)
--- NOTE | 2018-09-13 06:12 | CP.PCM.HP ---
<Fabienne Lopes - Last Filed: 09/13/18 16:41> History of Present Illness - History of Present Illness History of Present Illness: Please note history as per patient's daughter at bedside as patient is a poor historian. 82yo female PMHx HTN, COPD, L pneumonectomy, R breast ca, Dementia, bronchitis presents to ER with complaints of cough and congestion for 2 days. Patient was recently discharged from [facility] when she was admitted for COPD exacerbation and bronchitis and was dishcharged on PO steroids and PO antibiotics. Patient's daughter believed her mother was not improving, however, as she continued to have a continuous productive cough with clear sputum. She denied noticing any hemoptysis. Patient did not have any fever/chills/chest pain but she did complain of a sore throat. Patient has also had no recent travel/exposure to sick contacts. She denied other acute complaints of headache, dizziness, palpitations, abd pain, nausea, vomiting, decreased appetite, bowel/bladder complaints, pain in her legs bilaterally. The patient does have some b/l LE swelling however her daughter does not want to start her on diuretics at this time. 12point ROS negative unless aforementioned above PMHx: HTN, COPD, L pneumonectomy, R breast ca, Dementia, bronchitis Meds: pls see chart ALL: levofloxacin, sulfa Famhx: noncontributory SocHx: former tobacco use; no EtOH Present on Admission - Present on Admission Any Indicators Present on Admission: No Review of Systems - Review of Systems All systems: reviewed and no additional remarkable complaints except Review of Systems: as per HPI Past Patient History - Infectious Disease Hx of Infectious Diseases: None - Past Social History Smoking Status: Former Smoker - CARDIAC Hx Cardiac Disorders: Yes Hx Hypercholesterolemia: Yes Hx Hypertension: Yes Hx Peripheral Edema: Yes (+2 pitting ble) - PULMONARY Hx Respiratory Disorders: Yes Hx Asthma: Yes Hx Chronic Obstructive Pulmonary Disease (COPD): Yes Other/Comment: Pneumonectomy (L Lung) - NEUROLOGICAL Hx Neurological Disorder: Yes Hx Dementia: Yes - HEENT Hx HEENT Problems: No - RENAL Hx Chronic Kidney Disease: No - ENDOCRINE/METABOLIC Hx Endocrine Disorders: No - HEMATOLOGICAL/ONCOLOGICAL Hx Blood Disorders: Yes Hx Cancer: Yes (L breast ca femily denies) Other/Comment: family denies breast ca , stated " she had a lump removed and it was ok" - INTEGUMENTARY Hx Dermatological Problems: Yes - MUSCULOSKELETAL/RHEUMATOLOGICAL Hx Falls: No - GASTROINTESTINAL Hx Gastrointestinal Disorders: Yes (obese) Hx Gastroesophageal Reflux: Yes - GENITOURINARY/GYNECOLOGICAL Hx Genitourinary Disorders: Yes (cystitis) Hx Urinary Tract Infection: Yes (recent recurrent) - PSYCHIATRIC Hx Substance Use: No - SURGICAL HISTORY Hx Surgeries: Yes Hx Cholecystectomy: Yes Other/Comment: Pneumonectomy (L Lung) - ANESTHESIA Hx Anesthesia: Yes Hx Anesthesia Reactions: No Hx Malignant Hyperthermia: No Meds Allergies/Adverse Reactions: Allergies Allergy/AdvReac Type Severity Reaction Status Date / Time levofloxacin [From Levaquin] Allergy DIZZINESS Verified 09/12/18 08:06 Sulfa (Sulfonamide Allergy RASH Verified 09/12/18 08:06 Antibiotics) Physical Exam - Constitutional Appears: Non-toxic, No Acute Distress - Head Exam Head Exam: ATRAUMATIC, NORMAL INSPECTION, NORMOCEPHALIC - Eye Exam Eye Exam: EOMI, Normal appearance, PERRL. absent: Conjunctival injection, Scleral icterus - ENT Exam ENT Exam: Mucous Membranes Moist - Respiratory Exam Respiratory Exam: Rhonchi, NORMAL BREATHING PATTERN. absent: Accessory Muscle Use, Rales, Wheezes - Cardiovascular Exam Cardiovascular Exam: +S1, +S2, Systolic Murmur - GI/Abdominal Exam GI & Abdominal Exam: Normal Bowel Sounds, Soft. absent: Firm, Guarding, Rigid, Tenderness - Rectal Exam Rectal Exam: Deferred - Extremities Exam Extremities exam: Positive for: pedal edema, pedal pulses present - Back Exam Back exam: NORMAL INSPECTION. absent: rash noted - Neurological Exam Neurological exam: Alert, CN II-XII Intact, Oriented x3 - Psychiatric Exam Psychiatric exam: Normal Affect, Normal Mood - Skin Skin Exam: Dry, Intact, Normal Color, Warm Results - Vital Signs Recent Vital Signs: Last Vital Signs Temp 97.7 F 09/12/18 10:46 Pulse 100 H 09/12/18 23:53 Resp 20 09/12/18 23:53 BP 125/81 09/12/18 14:13 Pulse Ox 94 L 09/12/18 14:13 - Labs Result Diagrams: 09/12/18 09:00 09/12/18 09:00 Labs: Laboratory Results - last 24 hr 09/12/18 09/12/18 09/12/18 09:00 09:00 09:00 WBC 10.0 D RBC 4.12 Hgb 12.9 Hct 39.2 MCV 95.1 MCH 31.3 MCHC 32.9 RDW 12.2 Plt Count 177 MPV 10.5 Gran % 76.2 H Lymph % (Auto) 13.1 L [place] % (Auto) 10.6 H Eos % (Auto) 0.0 L Baso % (Auto) 0.1 Gran # 7.59 H Lymph # (Auto) 1.3 [place] # (Auto) 1.1 H Eos # (Auto) 0.0 Baso # (Auto) 0.01 pO2 115 H VBG pH 7.42 VBG pCO2 49.0 VBG HCO3 31.8 H VBG Total CO2 33.3 H VBG O2 Sat (Calc) 99.5 H VBG Base Excess 6.1 H VBG Potassium 3.8 Sodium 136.0 137 Chloride 101.0 100 Glucose 116 H Lactate 1.9 FiO2 21.0 Potassium 4.1 Carbon Dioxide 31 Anion Gap 10 BUN 17 Creatinine 0.5 L Est GFR ( Amer) > 60 Est GFR (Non-Af Amer) > 60 Random Glucose 112 H Calcium 8.8 Total Bilirubin 0.5 AST 24 ALT 36 Alkaline Phosphatase 68 NT-Pro-B Natriuret Pep 1830 H Total Protein 6.3 Albumin 3.8 Globulin 2.5 Albumin/Globulin Ratio 1.5 Venous Blood Potassium 3.8 Assessment & Plan - Assessment and Plan (Free Text) Assessment: 1. COPD exacerbation 2. Bronchitis 3. s/p L pneumonectomy 4. HTN 5. Dementia Plan: Patient admitted to med/surg. Bloodwork, imaging, and vitals reviewed. Pulmonology Dr. Grover on board- appreciate reccs. Low dose IV steroids on board and nebulizer treatments. Continue IV rocephin and zithromax at this time. Chest PT ordered. Patient encouraged to be OOB to chair. PT ordered for gait dysfunct ion and strengthening. Lasix on board for b/l LE swelling. Home medications continued for chronic issues. Will continue to monitor patient closely. Case discussed with daughter at bedside and questions and concerns were addressed thoroughly. Discussed with Dr. Jitendra Lopes PGY3 <Chris Ham S - Last Filed: 09/13/18 18:34> Results - Vital Signs Recent Vital Signs: Last Vital Signs Temp 97.2 F L 09/13/18 07:00 Pulse 65 09/13/18 07:00 Resp 20 09/13/18 07:00 BP 161/81 H 09/13/18 17:47 Pulse Ox 95 09/13/18 07:00 - Labs Result Diagrams: 09/12/18 09:00 09/12/18 09:00 Assessment & Plan - Assessment and Plan (Free Text) Plan: Pt seen and examined by me. I have reviewed the note of the certified court/medical interpreter and I agree with it. I have discussed the assessment and plan with the resident. I have reviewed the medications and the last labs. Spoke to daughter at bedside to get history. Pt has a COPD acute exacerbation. She has been placed on IV Solumedrol. She is on Duoneb neb treatments. Will start on lasix for her LE edema. Will get PT evaluation. Pulmonary consult appreciated. She was in a chair when I saw the pt this morning. She has a L pneumonectomy. She has a bronchitis that has not improved. HTN is controlled. She has been placed on her vitamins.
[2018-09-13] MEDS: Arformoterol 15 mcg/2 ml Inh Sol IH SCH ×2 (07:42→21:26)
[2018-09-13] MEDS: Albuterol-Ipratrop 3 mg / 0.5 (3 ml) UD IH SCH ×3 (07:42→21:26)
[2018-09-13] MEDS: Budesonide 0.25 mg/2 ml Inhal Susp UD INH SCH ×2 (07:51→21:26)
[2018-09-13] MEDS: Metoprolol Succinate 50 mg XL Tab PO SCH (09:32)
[2018-09-13] MEDS: MethylPREDNISolone 40 mg Vial IVP SCH ×2 (09:32→21:12)
[2018-09-13] MEDS: Cholecalciferol 1,000 INTLU TAB PO SCH (09:32)
[2018-09-13] MEDS: [UNRECOGNIZED DRUG - OTHER] PO SCH (09:33)
[2018-09-13] MEDS: GINSENG PO SCH (09:33)
[2018-09-13] MEDS: ZINC GLUCONATE ZINC PICOLINATE 30 MG PO SCH (09:34)
[2018-09-13] MEDS: GARLIC PO SCH (09:34)
[2018-09-13] MEDS: PARSLEY PO SCH (09:34)
[2018-09-13] MEDS: TURMERIC 400 MG PO SCH (09:34)
[2018-09-13] MEDS ORDERED: Non Formulary Medication (Simvastatin [Zocor] 1 TAB) PO SCH (10:00)
[2018-09-13] MEDS ORDERED: CHOLECALCIFEROL PO SCH (10:00)
[2018-09-13] MEDS ORDERED: VITAMIN E ACETATE PO SCH (10:00)
--- NOTE | 2018-09-13 11:13 | CARD ---
APPROVED REPORT Date of service: 09/12/2018 EKG Measurement Heart [id number] IN [id number] [id number] <Conclusion> Normal sinus rhythm Increased R/S ratio in V1, consider early transition or posterior infarct Abnormal ECG
--- NOTE | 2018-09-13 12:05 | CON ---
DATE: 09/13/2018 PULMONARY CONSULTATION REASON FOR PULMONARY CONSULTATION: Cough. REFERRING PHYSICIAN: Dr. Chris Ham. History is obtained via extensive discussion with the daughter (at bedside), and the patient at length. I have also reviewed the chart at length. HISTORY OF PRESENT ILLNESS: The patient is a chronically ill 82-year-old female, with past medical history significant for chronic obstructive pulmonary disease, status post left pneumonectomy 30 years ago (reason unknown), hypertension, dementia, who presents to [facility] with a 3-day history of worsening shortness of breath at rest, dyspnea on exertion, cough, and minimal sputum production. There is no history of chest pain, coughing up of blood, or chest pain - brought on with deep respirations. There is no history of temperatures, chills, or infectious exposure. There is no history of night sweats, weight loss, or appetite change prior to the above events. No history of leg or calf pains. No history of syncope or diaphoresis. No history of recent travel or trauma. REVIEW OF SYSTEMS: No history of nausea, vomiting, or diarrhea. No acute urinary symptoms. No new neurologic complaints. Rest of the review of systems is negative. ALLERGIES: ALLERGIES TO LEVAQUIN AND SULFONAMIDE ANTIBIOTICS. SOCIAL HISTORY: Positive for former tobacco usage. No alcohol. FAMILY HISTORY: No inheritable diseases. HOME MEDICATIONS: Include vitamin E, Zocor, Sudafed, Mucinex, Lexapro, cefuroxime, Pulmicort, aspirin, and Brovana. PHYSICAL EXAMINATION: GENERAL: The patient appears comfortable this morning. She is not short of breath at rest. She is not using accessory muscles for breathing. VITAL SIGNS: Temperature is 97.7, pulse 88, respirations 18, blood pressure 124/93. Oxygen saturation on nasal cannula is 94%. HEENT: Normocephalic, atraumatic. NECK: No JVD. CARDIOVASCULAR: Systolic ejection murmur at the lower left sternal border. No S3 gallop. LUNGS: Mild rhonchi - right lung. No wheezing. Left lung - bronchial breath sounds. EXTREMITIES: No clubbing, cyanosis, or edema. Calves are nontender to palpation. GI: Abdomen is soft, nontender, and nondistended. Bowel sounds are positive. SKIN: No acute rash. NEUROLOGIC: Exam limited at the present time. PERTINENT LABORATORY DATA: Chest x-ray was done yesterday and reviewed. The patient is status post left pneumonectomy. The right lung is clear. CBC: White count 10.0K, hemoglobin 12.9, hematocrit 39.2, platelets of 177,000. Complete Metabolic Profile: Creatinine 0.5, glucose 112, B-type natriuretic peptide 1830. Rest of the metabolic profiles within normal limits. IMPRESSION: 1. Recurrent bronchitis. 2. Chronic obstructive pulmonary disease. 3. Status post left pneumonectomy 30 years ago. 4. Hypertension. PLAN: Again, I did discuss the case with the daughter and the patient at length. I have also reviewed the chart at length. The patient presents back to [facility] with a 3-day history of worsening pulmonary symptoms. I did review the chest x-ray as above. The right lung appears clear. Again, the patient is status post left pneumonectomy many years ago. On physical exam, there is only mild bronchospasm noted. In addition, there is no significant alveolar-arterial gradient. I will continue the current nebulizer treatments and add low-dose intravenous steroids this morning. The patient does state to feeling much better this morning. She is clinically improved. The daughter also feels that her mother is improved. Additional pulmonary intervention will be based on the clinical status of the patient. I will discuss the above with Dr. Ham. Thank you very much for this pulmonary consultation. Ruben Escalera MD LUANNE
[2018-09-13] MEDS: Latanoprost 2.5 ml Opht Soln OU SCH (21:13)
--- NOTE | 2018-09-14 05:48 | CP.PCM.PN ---
<Beny Lopesima - Last Filed: 09/14/18 13:07> Subjective - Date & Time of Evaluation Date of Evaluation: 09/14/18 Time of Evaluation: 08:00 - Subjective Subjective: Pgy3 Medicine note for Dr. Ham Patient seen and examined with daughter at bedside. Patient was sitting OOB in chair. Nursing reported no acute events overnight. Patient continues to have a cough but reports breathing has much improved. She denies any shortness of breath and believes the steroids are working. Patient's daughter stated wheezing has markedly improved. Patient denied any fever, chills, headache, dizziness, chest pain, abd pain, nausea, vomiting, bowel/bladder complaints, pain in her legs b/l. She did admit to urinating frequently and is aware she is receiving lasix. Patient ambulated with PT the day before and was seen ambulating with daughter this morning. Objective - Vital Signs/Intake and Output Vital Signs (last 24 hours): Temp Pulse Resp BP Pulse Ox 98.6 F 74 20 177/94 H 95 09/13/18 21:23 09/13/18 21:23 09/13/18 07:00 09/13/18 21:23 09/13/18 21:23 Intake and Output: 09/13/18 09/14/18 18:59 06:59 Intake Total 480 Balance 480 - Medications Medications: Current Medications Albuterol/Ipratropium (Duoneb 3 Mg/0.5 Mg (3 Ml) Ud) 3 ml IH TIDRESP [facility] Last Admin: 09/13/18 21:26 Dose: 3 ml Arformoterol Tartrate (Brovana) 15 mcg IH [id number] [facility] Last Admin: 09/13/18 21:26 Dose: 15 mcg Ascorbic Acid (Vitamin C 500 Mg Tab) 1,000 mg PO DAILY [facility] Last Admin: 09/13/18 09:33 Dose: 1,000 mg Aspirin (Aspirin Chewable) 81 mg PO DAILY [facility] Last Admin: 09/13/18 09:33 Dose: 81 mg Atorvastatin Calcium (Lipitor) 20 mg PO DIN [facility] Last Admin: 09/13/18 17:47 Dose: 20 mg Benzocaine/Menthol (Cepacol Sore Throat) 1 mary grace MT Q2H PRN PRN Reason: Sore Throat Last Admin: 09/13/18 04:53 Dose: 1 mary grace Benzonatate (Tessalon Perles) 100 mg PO TID [facility] Last Admin: 09/13/18 17:47 Dose: 100 mg Budesonide (Pulmicort Respules) 0.25 mg INH [id number] [facility] Last Admin: 09/13/18 21:26 Dose: 0.25 mg Cholecalciferol (Vitamin D) 2,000 intlu PO DAILY [facility] Last Admin: 09/13/18 09:32 Dose: 2,000 intlu Escitalopram Oxalate (Lexapro) 5 mg PO DAILY [facility] Last Admin: 09/13/18 09:32 Dose: 5 mg Furosemide (Lasix) 40 mg IVP DAILY [facility] Ceftriaxone Sodium (Rocephin 1 Gram Ivpb) 1 gm in 100 mls @ 100 mls/hr IVPB DAILY [facility]; Protocol Azithromycin 250 mg/ Sodium (Chloride) 250 mls @ 167 mls/hr IVPB DAILY [facility]; Protocol Latanoprost (Xalatan Opht) 0.02 ml OU HS [facility] Last Admin: 09/13/18 21:13 Dose: 0.02 ml Methylprednisolone (Solu-Medrol) 30 mg IVP Q12 [facility] Last Admin: 09/13/18 21:12 Dose: 30 mg Metoprolol Succinate (Toprol Xl) 50 mg PO DAILY [facility] Last Admin: 09/13/18 09:32 Dose: 50 mg Ginseng [Ginseng] (560 Mg (Home Med)) 560 mg PO DAILY [facility] Last Admin: 09/13/18 09:33 Dose: Not Given L-Mefol/A-Cyst/Meb12 /Algal Oil [ Cerefolin Nac Caplet ] 1 Tab (Home Med) 1 tab PO DAILY [facility] Last Admin: 09/13/18 09:33 Dose: Not Given Parsley/Garlic [ Garlic & Parsley Tablet] 1 Tab (Home Med) 1 tab PO DAILY [facility] Last Admin: 09/13/18 09:34 Dose: Not Given Turmeric [Turmeric] (400 Mg (Home Med)) 400 mg PO DAILY [facility] Last Admin: 09/13/18 09:34 Dose: Not Given Zinc Gluconate-Zinc Picolinate [Zinc] 30 Mg (Home Med) 30 mg PO DAILY [facility] Last Admin: 09/13/18 09:34 Dose: Not Given Vitamin E (Vitamin E 400 Units Cap) 400 intlu PO DAILY [facility] Last Admin: 09/13/18 09:33 Dose: 400 intlu - Labs Labs: 09/12/18 09:00 09/12/18 09:00 - Constitutional Appears: Non-toxic, No Acute Distress - Head Exam Head Exam: ATRAUMATIC, NORMAL INSPECTION, NORMOCEPHALIC - Eye Exam Eye Exam: EOMI, Normal appearance. absent: Conjunctival injection, Scleral icterus - ENT Exam ENT Exam: Mucous Membranes Moist - Respiratory Exam Respiratory Exam: Rhonchi (improved since prior day R lung), NORMAL BREATHING PATTERN. absent: Accessory Muscle Use, Rales, Wheezes, Respiratory Distress - Cardiovascular Exam Cardiovascular Exam: +S1, +S2, Murmur. absent: Bradycardia, Tachycardia - GI/Abdominal Exam GI & Abdominal Exam: Soft, Normal Bowel Sounds. absent: Distended, Firm, Guarding, Rigid, Tenderness - Extremities Exam Extremities Exam: Pedal Edema (trace b/l). absent: Calf Tenderness - Back Exam Back Exam: NORMAL INSPECTION. absent: rash noted - Neurological Exam Neurological Exam: Alert, Awake, Oriented x3 - Psychiatric Exam Psychiatric exam: Normal Affect, Normal Mood - Skin Skin Exam: Dry, Intact, Normal Color, Warm Assessment and Plan - Assessment and Plan (Free Text) Assessment: 1. Recurrent bronchitis 2. COPD exacerbation 3. s/p L pneumonectomy 4. HTN 5. HLD 6. Dementia Plan: Patient clinically improved this AM. Patient's blood work, imaging, and vitals reviewed in chart. Continue breathing treatments and IV steroids are being tapered as per pulm. Patient on Rocephin and Azithromax at this time. Continue home medications for HTN and HLD. Continue lasix at this time. B/L LE swelling is improving. Home medications continued for chronic issues. Patient walked with PT and complained of SOB when ambulating. 6 minute walk test revealed patient is candidate for home O2. Paperwork for home O2 signed this morning. PT recommends home with services. Case discussed with daughter at bedside and questions and concerns were addressed thoroughly. Discussed with Dr. Jitendra Lopes PGY3 <Chris Ham - Last Filed: 09/14/18 18:48> Objective - Vital Signs/Intake and Output Vital Signs (last 24 hours): Temp Pulse Resp BP Pulse Ox 98.4 F 72 20 132/81 94 L 09/14/18 14:00 09/14/18 14:00 09/14/18 14:00 09/14/18 14:00 09/14/18 14:00 Intake and Output: 09/14/18 09/14/18 06:59 18:59 Intake Total 480 Balance 480 - Medications Medications: Current Medications Acetaminophen (Tylenol 325mg Tab) 325 mg PO Q4H PRN PRN Reason: Pain, moderate (4-7) Last Admin: 09/14/18 16:48 Dose: 325 mg Albuterol/Ipratropium (Duoneb 3 Mg/0.5 Mg (3 Ml) Ud) 3 ml IH TIDRESP [facility] Last Admin: 09/14/18 13:36 Dose: 3 ml Arformoterol Tartrate (Brovana) 15 mcg IH [id number] [facility] Last Admin: 09/14/18 07:32 Dose: 15 mcg Ascorbic Acid (Vitamin C 500 Mg Tab) 1,000 mg PO DAILY [facility] Last Admin: 09/14/18 09:19 Dose: 1,000 mg Aspirin (Aspirin Chewable) 81 mg PO DAILY [facility] Last Admin: 09/14/18 09:19 Dose: 81 mg Atorvastatin Calcium (Lipitor) 20 mg PO DIN [facility] Last Admin: 09/14/18 18:37 Dose: 20 mg Benzocaine/Menthol (Cepacol Sore Throat) 1 mary grace MT Q2H PRN PRN Reason: Sore Throat Last Admin: 09/14/18 18:38 Dose: 1 mary grace Benzonatate (Tessalon Perles) 100 mg PO TID [facility] Last Admin: 09/14/18 18:38 Dose: 100 mg Budesonide (Pulmicort Respules) 0.5 mg IH [id number] [facility] Cholecalciferol (Vitamin D) 2,000 intlu PO DAILY [facility] Last Admin: 09/14/18 09:19 Dose: 2,000 intlu Escitalopram Oxalate (Lexapro) 5 mg PO DAILY [facility] Last Admin: 09/14/18 09:19 Dose: 5 mg Furosemide (Lasix) 40 mg IVP DAILY [facility] Last Admin: 09/14/18 09:21 Dose: 40 mg Ceftriaxone Sodium (Rocephin 1 Gram Ivpb) 1 gm in 100 mls @ 100 mls/hr IVPB DAILY [facility]; Protocol Last Admin: 09/14/18 09:20 Dose: 100 mls/hr Azithromycin 250 mg/ Sodium (Chloride) 250 mls @ 167 mls/hr IVPB DAILY [facility]; Protocol Last Admin: 09/14/18 09:19 Dose: 167 mls/hr Latanoprost (Xalatan Opht) 0.02 ml OU HS [facility] Last Admin: 09/13/18 21:13 Dose: 0.02 ml Methylprednisolone (Solu-Medrol) 20 mg IVP Q12 [facility] Last Admin: 09/14/18 09:20 Dose: 20 mg Metoprolol Succinate (Toprol Xl) 50 mg PO DAILY [facility] Last Admin: 09/14/18 09:19 Dose: 50 mg Ginseng [Ginseng] (560 Mg (Home Med)) 560 mg PO DAILY [facility] Last Admin: 09/14/18 10:00 Dose: Not Given L-Mefol/A-Cyst/Meb12 /Algal Oil [ Cerefolin Nac Caplet ] 1 Tab (Home Med) 1 tab PO DAILY [facility] Last Admin: 09/14/18 10:00 Dose: Not Given Parsley/Garlic [ Garlic & Parsley Tablet] 1 Tab (Home Med) 1 tab PO DAILY [facility] Last Admin: 09/14/18 10:00 Dose: Not Given Turmeric [Turmeric] (400 Mg (Home Med)) 400 mg PO DAILY [facility] Last Admin: 09/14/18 09:21 Dose: Not Given Zinc Gluconate-Zinc Picolinate [Zinc] 30 Mg (Home Med) 30 mg PO DAILY [facility] Last Admin: 09/14/18 09:21 Dose: Not Given Vitamin E (Vitamin E 400 Units Cap) 400 intlu PO DAILY [facility] Last Admin: 09/14/18 09:19 Dose: 400 intlu - Labs Labs: 09/12/18 09:00 09/12/18 09:00 Assessment and Plan - Assessment and Plan (Free Text) Plan: Pt seen and examined by me. I have reviewed the note of the center medical and lab director and I agree with it. I have discussed the assessment and plan with the resident. I have reviewed the medications and the last labs. Pt with bronchitis acute on chronic. She also has a COPD exacerbation. She has a hx of a L pneumonectomy. She is on IV Rocephin and Azithromax. She will need home O2. Spoke to daughter at bedside. Pt is eating well. No pain.
[2018-09-14] MEDS: Arformoterol 15 mcg/2 ml Inh Sol IH SCH ×2 (07:32→23:00)
[2018-09-14] MEDS: Albuterol-Ipratrop 3 mg / 0.5 (3 ml) UD IH SCH ×3 (07:32→23:01)
[2018-09-14] MEDS: Budesonide 0.25 mg/2 ml Inhal Susp UD INH SCH (07:32)
--- NOTE | 2018-09-14 08:22 | PN ---
DATE: 09/14/2018 SUBJECTIVE: The patient appears quite comfortable this morning. She is out of bed, sitting in the chair. She is not short of breath. PHYSICAL EXAMINATION: VITAL SIGNS: Temperature is 98.6, pulse 74, respirations 18, blood pressure 177/94. Oxygen saturation on nasal cannula is 95%. HEENT: Normocephalic, atraumatic. No JVD. CARDIOVASCULAR: Systolic ejection murmur at the lower left sternal border. No S3 gallop. LUNGS: Much less/minimal rhonchi - right lung. No wheezing. Left lung - bronchial breath sounds. EXTREMITIES: No clubbing, cyanosis or edema. Calves are nontender to palpation. GASTROINTESTINAL: Abdomen is soft, nontender and nondistended. Bowel sounds are positive. SKIN: No acute rash. NEUROLOGIC: Exam limited at the present time. IMPRESSION: 1. Recurrent bronchitis. 2. Chronic obstructive pulmonary disease. 3. Status post left pneumonectomy 30 years ago. 4. Hypertension. PLAN: The patient appears quite comfortable this morning. She is out of bed, sitting in the chair. She does state to feeling much better overall. I did discuss the case with the daughter (at bedside) at length. The daughter confirms her mother's improvement. On physical exam, the patient's bronchospasm is certainly less. In addition, there is no significant alveolar-arterial gradient. I will continue the current nebulizer treatments and decrease the intravenous steroids this morning. The patient remains on antibiotic therapy. There are no temperatures noted. There is no leukocytosis. Clinical status of the patient is certainly improved - compared to the initial presentation. However,given her age and the above history, the overall status/prognosis for this patient does remain guarded. I will discuss the above with the attending physician. Ruben Escalera MD MTDAnupam
[2018-09-14] MEDS: Cholecalciferol 1,000 INTLU TAB PO SCH (09:19)
[2018-09-14] MEDS: Metoprolol Succinate 50 mg XL Tab PO SCH (09:19)
[2018-09-14] MEDS: Azithromycin 250 MG in Sodium Chloride 0.9% 250 ML IVPB SCH (09:19)
[2018-09-14] MEDS: cefTRIAXone 1 gm 1 GM/100 ML BAG IVPB SCH (09:20)
[2018-09-14] MEDS: MethylPREDNISolone 40 mg Vial IVP SCH ×2 (09:20→21:57)
[2018-09-14] MEDS: ZINC GLUCONATE ZINC PICOLINATE 30 MG PO SCH (09:21)
[2018-09-14] MEDS: TURMERIC 400 MG PO SCH (09:21)
[2018-09-14] MEDS: GARLIC PO SCH (10:00)
[2018-09-14] MEDS: PARSLEY PO SCH (10:00)
[2018-09-14] MEDS: [UNRECOGNIZED DRUG - OTHER] PO SCH (10:00)
[2018-09-14] MEDS: GINSENG PO SCH (10:00)
[2018-09-14 15:53] VITALS: O2SAT 94
[2018-09-14] MEDS: Benzocaine/Menthol (Cepacol) Lozenge MT PRN (18:38)
[2018-09-14] MEDS: Latanoprost 2.5 ml Opht Soln OU SCH (21:58)
[2018-09-14] MEDS: Budesonide 0.5 mg/2 ml Inhal Susp UD IH SCH (23:01)
[2018-09-15] MEDS: Albuterol-Ipratrop 3 mg / 0.5 (3 ml) UD IH SCH (08:18)
[2018-09-15] MEDS: Arformoterol 15 mcg/2 ml Inh Sol IH SCH (08:18)
[2018-09-15] MEDS: Budesonide 0.5 mg/2 ml Inhal Susp UD IH SCH (08:18)
[2018-09-15 08:27] VITALS: BP 152/84; PULSE 61; RESP 21; TEMP 98
--- NOTE | 2018-09-15 09:25 | PN ---
DATE: 09/15/2018 SUBJECTIVE: The patient appears very comfortable this morning. She is not short of breath at rest. She is out of bed, sitting in the chair. PHYSICAL EXAMINATION: VITAL SIGNS (last noted in the computer): Temperature 98.4, pulse 72, respirations 18/20, blood pressure 132/81. Oxygen saturation on nasal cannula is 94%. HEENT: Normocephalic, atraumatic. NECK: No JVD. CARDIOVASCULAR: Systolic ejection murmur at the lower left sternal border. No S3 gallop. LUNGS: Minimal/less rhonchi - right lung. No wheezing. Left lung - bronchial breath sounds. EXTREMITIES: No clubbing, cyanosis or edema. Calves are nontender to palpation. GI: Abdomen is soft, nontender and nondistended. Bowel sounds are positive. SKIN: No acute rash. NEUROLOGIC: Exam limited at the present time. IMPRESSION: 1. Recurrent bronchitis. 2. Chronic obstructive pulmonary disease. 3. Status post left pneumonectomy 30 years ago. 4. Hypertension. PLAN: The patient appears very comfortable this morning. She is not short of breath at rest. She is out of bed, sitting in the chair. She states to feeling much better overall. I did discuss the case with the daughter (at bedside) at length. The daughter confirms her mother's improvement. On physical exam, the patient's bronchospasm continues to slowly resolve. In addition, there is no significant alveolar-arterial gradient. I will continue with the current nebulizer treatments and change to oral steroids this morning. The patient remains on antibiotic therapy. There are no temperatures noted. There is no leukocytosis. Clinical status of the patient is significantly improved overall. However, given the above, the future status/prognosis for this patient does remain guarded. The patient is for discharge in the near future. I will discuss the above with Dr. Ham. Ruben Escalera MD LUANNE
--- NOTE | 2018-09-15 09:47 | CP.PCM.DIS ---
<Fabienne Lopes - Last Filed: 09/15/18 10:21> Provider - Provider Date of Admission: 09/12/18 18:29 Attending physician: Chris Ham MD Primary care physician: Dr. Michael Consults: 09/12/18 18:26 Consult [Physician Consult] Routine Comment: Consulting Provider: Ruben Escalera Consulting Physician: Ruben Escalera Reason for Consult: SOB 09/12/18 23:48 Nursing Referral for Palliative Care Routine Comment: leena score Physician Instructions: Reason For Exam: eval Time Spent in preparation of Discharge (in minutes): 45 Hospital Course - Lab Results Lab Results: Micro Results 09/12/18 09:15 Blood-Venous Blood Culture - Preliminary NO GROWTH AFTER 48 HOURS 09/12/18 09:00 Blood-Venous Blood Culture - Preliminary NO GROWTH AFTER 48 HOURS Most Recent Lab Values WBC 10.0 10^3/uL (4.5-11.0) D 09/12/18 09:00 RBC 4.12 10^6/uL (3.5-6.1) 09/12/18 09:00 Hgb 12.9 g/dL (12.0-16.0) 09/12/18 09:00 Hct 39.2 % (36.0-48.0) 09/12/18 09:00 MCV 95.1 fl (80.0-105.0) 09/12/18 09:00 MCH 31.3 pg (25.0-35.0) 09/12/18 09:00 MCHC 32.9 g/dl (31.0-37.0) 09/12/18 09:00 RDW 12.2 % (11.5-14.5) 09/12/18 09:00 Plt Count 177 10^3/uL (120.0-450.0) 09/12/18 09:00 MPV 10.5 fl (7.0-11.0) 09/12/18 09:00 Gran % 76.2 % (50.0-68.0) H 09/12/18 09:00 Lymph % (Auto) 13.1 % (22.0-35.0) L 09/12/18 09:00 [place] % (Auto) 10.6 % (1.0-6.0) H 09/12/18 09:00 Eos % (Auto) 0.0 % (1.5-5.0) L 09/12/18 09:00 Baso % (Auto) 0.1 % (0.0-3.0) 09/12/18 09:00 Gran # 7.59 (1.4-6.5) H 09/12/18 09:00 Lymph # (Auto) 1.3 (1.2-3.4) 09/12/18 09:00 [place] # (Auto) 1.1 (0.1-0.6) H 09/12/18 09:00 Eos # (Auto) 0.0 (0.0-0.7) 09/12/18 09:00 Baso # (Auto) 0.01 K/mm3 (0.0-2.0) 09/12/18 09:00 pO2 115 mm/Hg (30-55) H 09/12/18 09:00 VBG pH 7.42 (7.32-7.43) 09/12/18 09:00 VBG pCO2 49.0 (40-60) 09/12/18 09:00 VBG HCO3 31.8 mmol/l (21-28) H 09/12/18 09:00 VBG Total CO2 33.3 mmol.L (22-28) H 09/12/18 09:00 VBG O2 Sat (Calc) 99.5 % (40-65) H 09/12/18 09:00 VBG Base Excess 6.1 mmol/L (0.0-2.0) H 09/12/18 09:00 VBG Potassium 3.8 mmol/L (3.6-5.2) 09/12/18 09:00 Sodium 136.0 mmol/L (132-148) 09/12/18 09:00 Chloride 101.0 mmol/L (98-107) 09/12/18 09:00 Glucose 116 mg/dl (65-105) H 09/12/18 09:00 Lactate 1.9 mmol/L (0.7-2.1) 09/12/18 09:00 FiO2 21.0 % 09/12/18 09:00 Sodium 137 mmol/L (132-148) 09/12/18 09:00 Potassium 4.1 mmol/L (3.6-5.0) 09/12/18 09:00 Chloride 100 mmol/L (98-107) 09/12/18 09:00 Carbon Dioxide 31 mmol/L (21-33) 09/12/18 09:00 Anion Gap 10 (10-20) 09/12/18 09:00 BUN 17 mg/dL (7-21) 09/12/18 09:00 Creatinine 0.5 mg/dl (0.7-1.2) L 09/12/18 09:00 Est GFR ( Amer) > 60 09/12/18 09:00 Est GFR (Non-Af Amer) > 60 09/12/18 09:00 Random Glucose 112 mg/dL (70-110) H 09/12/18 09:00 Calcium 8.8 mg/dL (8.4-10.5) 09/12/18 09:00 Total Bilirubin 0.5 mg/dL (0.2-1.3) 09/12/18 09:00 AST 24 U/L (14-36) 09/12/18 09:00 ALT 36 U/L (7-56) 09/12/18 09:00 Alkaline Phosphatase 68 U/L (38-126) 09/12/18 09:00 NT-Pro-B Natriuret Pep 1830 pg/mL (0-450) H 09/12/18 09:00 Total Protein 6.3 g/dL (5.8-8.3) 09/12/18 09:00 Albumin 3.8 g/dL (3.0-4.8) 09/12/18 09:00 Globulin 2.5 gm/dL 09/12/18 09:00 Albumin/Globulin Ratio 1.5 (1.1-1.8) 09/12/18 09:00 Venous Blood Potassium 3.8 mmol/L (3.6-5.2) 09/12/18 09:00 - Hospital Course Hospital Course: Upon Admission 82yo female PMHx HTN, COPD, L pneumonectomy, R breast ca, Dementia, bronchitis presents to ER with complaints of cough and congestion for 2 days. Patient was recently discharged from [facility] when she was admitted for COPD exacerbation and bronchitis and was discharged on PO steroids and PO antibiotics. Patient's daughter believed her mother was not improving, however, as she continued to have a continuous productive cough with clear sputum. She denied noticing any hemoptysis. Patient did not have any fever/chills/chest pain but she did complain of a sore throat. Patient has also had no recent travel/exposure to sick contacts. She denied other acute complaints of headache, dizziness, palpitations, abd pain, nausea, vomiting, decreased appetite, bowel/bladder complaints, pain in her legs bilaterally. The patient does have some b/l LE swelling. 12point ROS negative unless aforementioned above. Hospital Course Patient admitted to med/surg for recurrent bronchitis and COPD management. Bloodwork, imaging, and vitals reviewed. Pulmonology Dr. Grover consulted. CXR revealed s/p L sided pneumonectomy with pleural calcifications and volume loss; R lung clear. Low dose IV steroids and nebulizer treatments were started. Patient was continued on IV Rocephin and Zithromax at this time. Chest physiotherapy was ordered and patient was encouraged to be OOB to chair and to ambulate. PT was on board for gait dysfunction and strengthening. Lasix was ordered for b/l LE swelling and home medications continued for chronic issues. When patient walked with PT she complained of SOB when ambulating. 6 minute walk test revealed patient was candidate for home O2 which was set up by case management. PT also recommended home with services which was addressed by case management. Patient clinically improved and on day of discharge she was deemed medically optimized for discharge. Discharge Instructions "You are being discharged from [facility]. Upon discharge please resume your home medications. You are also being discharged on a prednisone taper. Please take it as follows: -Prednisone 10mg 4 tabs daily for 3 days -Prednisone 10mg 2 tabs daily for 3 days -Prednisone 10mg 1 tab daily for 3 days Please follow up with your primary care doctor Dr. Michael within 7 days of discharge. Please also follow up with your slitter scorer cut off operator Dr. Mullen within 10 days of discharge. If symptoms return please visit your nearest Emergency Room." Discharge instructions discussed in detail with patient and daughter who vocalized understanding and agreement with plan. Please note this is a discharge summary. For full hospital course please refer to EMR. Discharge Exam - Head Exam Head Exam: ATRAUMATIC, NORMAL INSPECTION, NORMOCEPHALIC - Eye Exam Eye Exam: EOMI, Normal appearance, PERRL. absent: Conjunctival injection, Scleral icterus Pupil Exam: NORMAL ACCOMODATION - ENT Exam ENT Exam: Mucous Membranes Moist - Neck Exam Neck exam: Full Rom - Respiratory Exam Respiratory Exam: Rhonchi (scant R lung), NORMAL BREATHING PATTERN. absent: Accessory Muscle Use, Rales, Wheezes, Respiratory Distress - Cardiovascular Exam Cardiovascular Exam: +S1, +S2, Systolic Murmur - GI/Abdominal Exam GI & Abdominal Exam: Normal Bowel Sounds, Soft. absent: Firm, Guarding, Rigid, Tenderness - Extremities Exam Extremities exam: normal capillary refill, pedal edema (b/l trace), pedal pulses present - Back Exam Back exam: NORMAL INSPECTION. absent: rash noted - Neurological Exam Neurological exam: Alert, CN II-XII Intact, Normal Gait, Oriented x3 - Psychiatric Exam Psychiatric exam: Normal Affect, Normal Mood - Skin Skin Exam: Dry, Intact, Normal Color, Warm Discharge Plan - Discharge Medications Prescriptions: predniSONE [Prednisone] 10 mg PO DAILY 9 Days tab - Follow Up Plan Condition: FAIR Disposition: HOME/ ROUTINE Instructions: Preventing Falls in the Older Adult, Chronic Bronchitis (DC), Exacerbation of COPD, Shortness of Breath (Dyspnea), Fluid Restricted Diet Additional Instructions: You are being discharged from [facility]. Upon discharge please resume your home medications. You are also being discharged on a prednisone taper. Please take it as follows: -Prednisone 10mg 4 tabs daily for 3 days -Prednisone 10mg 2 tabs daily for 3 days -Prednisone 10mg 1 tab daily for 3 days Please follow up with your primary care doctor Dr. Michael within 7 days of discharge. Please also follow up with your slitter scorer cut off operator Dr. Mullen within 10 days of discharge. If symptoms return please visit your nearest Emergency Room. Referrals: Michael Mullen MD [Staff Provider] - Armin Michael MD [Family Provider] - <Chris Ham - Last Filed: 09/15/18 21:49> Provider - Provider Date of Admission: 09/12/18 18:29 Attending physician: Chris Ham MD Consults: 09/12/18 18:26 Consult [Physician Consult] Routine Comment: Consulting Provider: Ruben Escalera Consulting Physician: Ruben Escalera Reason for Consult: SOB 09/12/18 23:48 Nursing Referral for Palliative Care Routine Comment: leena score Physician Instructions: Reason For Exam: [facility] Course - Lab Results Lab Results: Micro Results 09/12/18 09:15 Blood-Venous Blood Culture - Preliminary NO GROWTH AFTER 3 DAYS 09/12/18 09:00 Blood-Venous Blood Culture - Preliminary NO GROWTH AFTER 3 DAYS Most Recent Lab Values WBC 10.0 10^3/uL (4.5-11.0) D 09/12/18 09:00 RBC 4.12 10^6/uL (3.5-6.1) 09/12/18 09:00 Hgb 12.9 g/dL (12.0-16.0) 09/12/18 09:00 Hct 39.2 % (36.0-48.0) 09/12/18 09:00 MCV 95.1 fl (80.0-105.0) 09/12/18 09:00 MCH 31.3 pg (25.0-35.0) 09/12/18 09:00 MCHC 32.9 g/dl (31.0-37.0) 09/12/18 09:00 RDW 12.2 % (11.5-14.5) 09/12/18 09:00 Plt Count 177 10^3/uL (120.0-450.0) 09/12/18 09:00 MPV 10.5 fl (7.0-11.0) 09/12/18 09:00 Gran % 76.2 % (50.0-68.0) H 09/12/18 09:00 Lymph % (Auto) 13.1 % (22.0-35.0) L 09/12/18 09:00 [place] % (Auto) 10.6 % (1.0-6.0) H 09/12/18 09:00 Eos % (Auto) 0.0 % (1.5-5.0) L 09/12/18 09:00 Baso % (Auto) 0.1 % (0.0-3.0) 09/12/18 09:00 Gran # 7.59 (1.4-6.5) H 09/12/18 09:00 Lymph # (Auto) 1.3 (1.2-3.4) 09/12/18 09:00 [place] # (Auto) 1.1 (0.1-0.6) H 09/12/18 09:00 Eos # (Auto) 0.0 (0.0-0.7) 09/12/18 09:00 Baso # (Auto) 0.01 K/mm3 (0.0-2.0) 09/12/18 09:00 pO2 115 mm/Hg (30-55) H 09/12/18 09:00 VBG pH 7.42 (7.32-7.43) 09/12/18 09:00 VBG pCO2 49.0 (40-60) 09/12/18 09:00 VBG HCO3 31.8 mmol/l (21-28) H 09/12/18 09:00 VBG Total CO2 33.3 mmol.L (22-28) H 09/12/18 09:00 VBG O2 Sat (Calc) 99.5 % (40-65) H 09/12/18 09:00 VBG Base Excess 6.1 mmol/L (0.0-2.0) H 09/12/18 09:00 VBG Potassium 3.8 mmol/L (3.6-5.2) 09/12/18 09:00 Sodium 136.0 mmol/L (132-148) 09/12/18 09:00 Chloride 101.0 mmol/L (98-107) 09/12/18 09:00 Glucose 116 mg/dl (65-105) H 09/12/18 09:00 Lactate 1.9 mmol/L (0.7-2.1) 09/12/18 09:00 FiO2 21.0 % 09/12/18 09:00 Sodium 137 mmol/L (132-148) 09/12/18 09:00 Potassium 4.1 mmol/L (3.6-5.0) 09/12/18 09:00 Chloride 100 mmol/L (98-107) 09/12/18 09:00 Carbon Dioxide 31 mmol/L (21-33) 09/12/18 09:00 Anion Gap 10 (10-20) 09/12/18 09:00 BUN 17 mg/dL (7-21) 09/12/18 09:00 Creatinine 0.5 mg/dl (0.7-1.2) L 09/12/18 09:00 Est GFR ( Amer) > 60 09/12/18 09:00 Est GFR (Non-Af Amer) > 60 09/12/18 09:00 Random Glucose 112 mg/dL (70-110) H 09/12/18 09:00 Calcium 8.8 mg/dL (8.4-10.5) 09/12/18 09:00 Total Bilirubin 0.5 mg/dL (0.2-1.3) 09/12/18 09:00 AST 24 U/L (14-36) 09/12/18 09:00 ALT 36 U/L (7-56) 09/12/18 09:00 Alkaline Phosphatase 68 U/L (38-126) 09/12/18 09:00 NT-Pro-B Natriuret Pep 1830 pg/mL (0-450) H 09/12/18 09:00 Total Protein 6.3 g/dL (5.8-8.3) 09/12/18 09:00 Albumin 3.8 g/dL (3.0-4.8) 09/12/18 09:00 Globulin 2.5 gm/dL 09/12/18 09:00 Albumin/Globulin Ratio 1.5 (1.1-1.8) 09/12/18 09:00 Venous Blood Potassium 3.8 mmol/L (3.6-5.2) 09/12/18 09:00 - Hospital Course Hospital Course: Pt seen and examined by me. I have reviewed the note of the medical secretary and I agree with it. I have discussed the assessment and plan with the resident. I have reviewed the medications and the last labs.Spoke to daughter at bedside. Pt will be discharged on Prednisone taper. I spoke to Dr Holland who cleared the pt for discharge. She will f/u with pulmonary as outpt.
[2018-09-15] MEDS: Benzocaine/Menthol (Cepacol) Lozenge MT PRN (10:37)
[2018-09-15] MEDS: Cholecalciferol 1,000 INTLU TAB PO SCH (10:37)
[2018-09-15] MEDS: Metoprolol Succinate 50 mg XL Tab PO SCH (10:37)
[2018-09-15] MEDS: cefTRIAXone 1 gm 1 GM/100 ML BAG IVPB SCH (10:38)
[2018-09-15] MEDS: Azithromycin 250 MG in Sodium Chloride 0.9% 250 ML IVPB SCH (10:39)
[2018-09-15] MEDS: GARLIC PO SCH (12:37)
[2018-09-15] MEDS: TURMERIC 400 MG PO SCH (12:37)
[2018-09-15] MEDS: PARSLEY PO SCH (12:37)
[2018-09-15] MEDS: ZINC GLUCONATE ZINC PICOLINATE 30 MG PO SCH (12:39)
== END 2018-09-15 15:00 | disposition home or self-care (01) | DRG 192 ==
LOC: ED 07:48 → ERH 13:11 → 5RSO 14:54 → OBSVTOIN 18:29 → 5RNO 09-14 09:59
PROVIDERS: ADMIT Internal Medicine Nephrology; ATTEND Internal Medicine Nephrology
DX: J44.1 Chronic obstructive pulmonary disease with (acute) exacerbation (principal); E78.00 Pure hypercholesterolemia, unspecified; E78.5 Hyperlipidemia, unspecified; F03.90 Unspecified dementia, unspecified severity, without behavioral disturbance, psychotic disturbance, mood disturbance, and anxiety; I10 Essential (primary) hypertension; K21.9 Gastro-esophageal reflux disease without esophagitis; Z79.82 Long term (current) use of aspirin; Z85.3 Personal history of malignant neoplasm of breast; Z87.440 Personal history of urinary (tract) infections; Z87.891 Personal history of nicotine dependence; Z90.2 Acquired absence of lung [part of]; Z90.49 Acquired absence of other specified parts of digestive tract; Z88.1 Allergy status to other antibiotic agents; Z88.2 Allergy status to sulfonamides

== ENCOUNTER 2018-10-19 12:00 | Outpatient (CLI) | payer MEDICARE | END 2018-10-19 12:01 | disposition home or self-care (01) | LOC: RAD 12:00 ==